=== PATIENT | female | born 2005 | race African-American/Black ===

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

== ENCOUNTER 2025-04-05 17:29 | Emergency (ER) | payer BC, SELFPAY ==
[2025-04-05 17:29] VITALS: BP 140/85; PULSE 90; RESP 18; TEMP 36.7; O2SAT 98; BMI 30.7
[2025-04-05 18:50] VITALS: BP 132/88; PULSE 91; RESP 16; TEMP 37.2; O2SAT 99
== END 2025-04-05 18:51 | disposition home or self-care (01) ==
PROVIDERS: Emergency Provider Emergency Medicine; Visit Provider Emergency Medicine
DX: R05.9 Cough, unspecified (principal); J40 Bronchitis, not specified as acute or chronic; F17.290 Nicotine dependence, other tobacco product, uncomplicated; J45.909 Unspecified asthma, uncomplicated; F17.210 Nicotine dependence, cigarettes, uncomplicated; F41.9 Anxiety disorder, unspecified; Z79.899 Other long term (current) drug therapy; Z79.51 Long term (current) use of inhaled steroids
CPT/HCPCS: 71046; 96372; 99282

== ENCOUNTER 2025-04-15 17:30 | Emergency (ER) | payer BC, SELFPAY ==
[2025-04-15 17:31] VITALS: BP 130/72; PULSE 83; RESP 17; TEMP 36.4; O2SAT 97; BMI 30.2
--- NOTE | 2025-04-15 17:52 | EDS_ITS ---
HPI History of Present Illness Chief Complaint: Nausea/Vomiting [facility] Medical History Anxiety Migraine headache Asthma Home Medications ?Medication ?Instructions ?Recorded ?Last Taken ?Type atomoxetine See Rx Instructions PO .COMP ANTOLIN 06/05/24 06/03/24 History ADHD beclomethasone dipropionate 80 2 inh inhalation QHS Unknown History mcg/actuation HFA breath activated aerosol (Qvar RediHaler) levocetirizine 5 mg tablet (24HR 5 mg PO QHS 06/05/24 Unknown History Allergy Relief) buspirone 5 mg tablet 5 mg PO TID PRN anxiety 1 mo nth 06/06/24 Unknown Rx #30 tabs topiramate 25 mg tablet 25 mg PO QHS 30 days #30 tab s 06/06/24 Unknown Rx albuterol sulfate 90 mcg/actuation 1 - 2 puff inhalati on Q4H PRN PRN 04/05/25 Unknown Rx aerosol inhaler (Ventolin HFA) Wheezing #1 device inhalational spacing device (Space #1 ea 04/05/25 Unkn own Rx Chamber) ondansetron 4 mg disintegrating 4 mg PO Q8H PRN PRN Na usea #10 tabs 04/15/25 Unknown Rx tablet Allergy/AdvReac Type Severity Reaction Status Date / Time Gadolinium-MRI Contrast Allergy Mild Nausea Verified 04/15/25 17:31 Medium pyrilamine AdvReac Intermediate Other Verified 04/15/25 17:31 Surgical History History of repair of congenital cleft palate Hx of adenoidectomy Hx of tympanostomy tubes Social History Smoking Status: Current every day smoker tobacco type: cigarettes and e- cigarettes substance use type: marijuana EXAM Physical Exam Const Vital Signs: 04/15/25 17:31 Temperature 97.5 F L Temperature Source Oral Pulse Rate 83 Respiratory Rate 17 Blood Pressure 130/72 H Blood Pressure Mean 91 Pulse Ox 97 Oxygen Delivery Method Room Air MDM MDM MDM Narrative Medical decision making narrative: HISTORY OF PRESENT ILLNESS: Chief complaint: Nausea and vomiting 19-year-old female history of asthma, anxiety presents with nausea and vomiting. She states she has had nausea and vomiting and near syncopal episodes for last several days. She further states she has been having 3-4 episodes of nonbloody nonbilious vomitus daily for the last 3 to 4 days. She notes as she is vomiting she feels like she may pass out. Denies losing consciousness. Denies prodromal
--- NOTE | 2025-04-15 17:52 | EX.ED.GENINJ ---
HPI History of Present Illness Chief Complaint: Nausea/Vomiting [facility] Medical History Anxiety Migraine headache Asthma Home Medications ?Medication ?Instructions ?Recorded ?Last Taken ?Type atomoxetine See Rx Instructions PO .COMPLEX 06/05/24 06/03/24 History ADHD beclomethasone dipropionate 80 2 inh inhalation QHS 06/05/24 Unknown History mcg/actuation HFA breath activated aerosol (Qvar RediHaler) levocetirizine 5 mg tablet (24HR 5 mg PO QHS 06/05/24 Unknown History Allergy Relief) buspirone 5 mg tablet 5 mg PO TID PRN anxiety 1 month 06/06/24 Unknown Rx #30 tabs topiramate 25 mg tablet 25 mg PO QHS 30 days #30 tabs 06/06/24 Unknown Rx albuterol sulfate 90 mcg/actuation 1 - 2 puff inhalation Q4H PRN PRN 04/05/25 Unknown Rx aerosol inhaler (Ventolin HFA) Wheezing #1 device inhalational spacing device (Space #1 ea 04/05/25 Unknown Rx Chamber) ondansetron 4 mg disintegrating 4 mg PO Q8H PRN PRN Nausea #10 tabs 04/15/25 Unknown Rx tablet Allergy/AdvReac Type Severity Reaction Status Date / Time Gadolinium-MRI Contrast Allergy Mild Nausea Verified 04/15/25 17:31 Medium pyrilamine AdvReac Intermediate Other Verified 04/15/25 17:31 Surgical History History of repair of congenital cleft palate Hx of adenoidectomy Hx of tympanostomy tubes Social History Smoking Status: Current every day smoker tobacco type: cigarettes and e-cigarettes substance use type: marijuana EXAM Physical Exam Const Vital Signs: 04/15/25 17:31 Temperature 97.5 F L Temperature Source Oral Pulse Rate 83 Respiratory Rate 17 Blood Pressure 130/72 H Blood Pressure Mean 91 Pulse Ox 97 Oxygen Delivery Method Room Air MDM MDM MDM Narrative Medical decision making narrative: HISTORY OF PRESENT ILLNESS: Chief complaint: Nausea and vomiting 19-year-old female history of asthma, anxiety presents with nausea and vomiting. She states she has had nausea and vomiting and near syncopal episodes for last several days. She further states she has been having 3-4 episodes of nonbloody nonbilious vomitus daily for the last 3 to 4 days. She notes as she is vomiting she feels like she may pass out. Denies losing consciousness. Denies prodromal symptoms such as headache, chest pain, severe abdominal pain. Denies any bleeding diathesis. Denies any difficulty urinating. No she is sexually active with men but her last period 1 week ago. She is think she is . Denies history abdominal surgeries. Denies any family procedures for blood clots. The patient denies recent surgery in the last 4 weeks or immobilization in the last 3 days, denies previous diagnosis of DVT or PE, hemoptysis, unilateral leg swelling or malignancy with treatment the last 6 months or palliative. No estrogen use noted. REVIEW OF SYSTEMS: Pertinent positives: Nausea and vomiting Pertinent negatives: Chest pain, shortness of breath, fevers PHYSICAL EXAM: Nursing triage notes reviewed, Vital signs reviewed Constitutional: please see [facility] HENT: MMM Eyes: Pupils equal round and reactive to light, Extraocular muscles intact Neck: No stridor, no JVD, full neck ROM Lungs: Clear to auscultation, No wheezing or rales. No increased work of breathing, no conversational dyspnea, no accessory muscle use, no nasal flaring. No respiratory distress noted Heart: Regular rate and rhythm, No rubs and No gallops, 2+ distal pulses (radial, femoral, posterior tibial) in all extremities Abdomen: Soft, there is no tenderness, rigidity, rebound or guarding, no obvious peritoneal signs, no palpable pulsatile abdominal masses, no auscultated abdominal bruit : No CVAT Extremities: No edema Neuro: No new focal neurological deficits, cranial nerves II through XII intact, 5/5 strength in all present extremities. Intact sensation to light touch in all present extremities, 2+ reflexes bilateral patella tendons. Skin: No rash or lesions noted MEDICAL DECISION MAKING: Chief Complaint: please see HPI External records reviewed: Reviewed recent ED visit from 10 days ago with the patient was evaluated for bronchitis Factors affecting care: As per HPI Social determinants of health: none History obtained from others: Friend Consults: none [facility] Narrative: Patient was initially hemodynamically stable, afebrile and nontoxic-appearing. Exam completely benign. Abdomen soft nontender patient was in no distress noted. Nauseous was not actively vomiting I considered the following differential diagnosis: Dehydration, arrhythmia, anemia, electrolyte disturbance, acute kidney injury, acute pancreatitis, hepatobiliary obstruction, arrhythmia, pneumonia, heart failure I obtained a broad lab and imaging work to further determine if the patient was suffering from a life-threatening etiology. Initially treat the patient IV fluids and Zofran Considered obtaining a troponin value given the patient's report of near syncope however she had no chest pain she had no risk factors for ACS her EKG was nonischemic therefore troponin assesment was not indicated at this time as I do not have a high suspicion for ACS ALL IMAGES (IF OBTAINED) HAVE BEEN PERSONALLY REVIEWED AND INTERPRETED BY MYSELF. EKG with normal sinus rhythm rate of 71, normal axis, normal intervals, no STEMI, no sign of WW, ARVD or Brugada syndrome I have personally reviewed the patient's chest x-ray. Chest x-ray is unremarkable for pulmonary edema, pneumothorax, pneumonia or focal cardiopulmonary abnormality. CBC with leukocytosis suggestive of systemic inflammation, no anemia or thrombocytopenia BMP without evidence of significant electrolyte abnormalities, no anion gap, no acute kidney injury. Lipase is wnl indicating no pancreatic inflammation. Urine test negative Upon reevaluation the patient made hemodynamically stable. She is able to tolerate p.o. She is appropriate for discharge home. The patient and/or family, caregivers express understanding. The patient and/or family, caregivers agrees with the plan. Shared decision making: I will have a discussion with the patient and or visitors regarding risk/benefits of further testing or admission. They will be made aware of of the risk/benefits inherent in this decision they will be given the opportunity to voice understanding. Total critical care time today provided was at least 0 minutes. This excludes separately billable procedures. Critical care time (if documented) is secondary to the patient having high probability of clinically significant/life threatening deterioration in the patient's condition which required my urgent intervention. Impression: 1. Nausea vomiting 2. Near syncope Dispo: Discharge home This note was generated with [employer] dictation software. It may contain incorrect words, spelling, and punctuation that were not noted in review of the chart prior to signing. Lab Data Labs: Laboratory Results - last 24 hr 04/15/25 04/15/25 18:10 18:37 WBC 13.1 H RBC 4.24 Hgb 13.2 Hct 38.0 MCV 89.6 MCH 31.1 MCHC 34.7 RDW Std Deviation 38.5 RDW Coeff of Phani 11.9 Plt Count 375 MPV 9.8 Immature Gran % (Auto) 0.500 Neut % (Auto) 74.5 H Lymph % (Auto) 19.0 [place] % (Auto) 5.5 Eos % (Auto) 0.2 Baso % (Auto) 0.3 Absolute Neuts (auto) 9.8 H Absolute Lymphs (auto) 2.48 Nucleated RBC % 0 Sodium 139 Potassium 3.6 Chloride 100 Carbon Dioxide 26.8 Anion Gap 12 BUN 13 Creatinine 0.81 Estim Creat Clear Calc 110.16 Est GFR (MDRD) Non-Af 107 BUN/Creatinine Ratio 15.6 Glucose 79 Calcium 9.6 Total Bilirubin 0.62 AST 20 ALT 20 Alkaline Phosphatase 111 H Total Protein 8.4 Albumin 4.6 Globulin 3.8 Albumin/Globulin Ratio 1.2 Lipase 27 Urine Test Negative Radiography Diagnostic Testing: Clinical Impression(s) from Imaging Studies Chest X-Ray 04/15/25 18:09 IMPRESSION: No focal consolidations. Reading Location: [facility] Discharge Plan Triage Chief Complaint: Nausea/Vomiting ED Provider: Don Hurd Dx/Rx/DC Orders Clinical Impression: Nausea, Near syncope Instructions: Dizziness Fainting Causes Prescriptions: New ondansetron 4 mg tablet,disintegrating 4 mg PO Q8H PRN PRN (Reason: Nausea) Qty: 10 0RF No Action atomoxetine [Strattera] See Rx Instructions PO .COMPLEX Rx Instructions: orally daily at night; Qvar RediHaler 80 mcg/actuation HFA aerosol breath activated 2 inh inhalation QHS levocetirizine [24HR Allergy Relief] 5 mg tablet 5 mg PO QHS topiramate 25 mg Tablet 25 mg PO QHS 30 Days Qty: 30 0RF Rx Instructions: 25 mg at daily night for 1 week and then increase to 50 mg daily just to continue buspirone 5 mg tablet 5 mg PO TID PRN (Reason: anxiety) 30 Days Qty: 30 0RF albuterol sulfate [Ventolin HFA] 90 mcg/actuation HFA aerosol inhaler 1 - 2 puff inhalation Q4H PRN PRN (Reason: Wheezing) Qty: 1 0RF (DME) Space Chamber Spacer See Rx Instructions .Route Qty: 1 0RF Rx Instructions: As directed Primary Care Provider: Care Physician,No Primary Referrals: Gt Saba MD [Med Staff - [employer]] - Activity Restrictions/Additional Instructions: Thank you for trusting us with your care today! Your labs and images are reassuring. No signs of significant dehydration, sign of organ dysfunction, heart dysfunction or . Please take Tylenol (2 pills, 650 mg), ibuprofen (2 pills, 400 mg) every 6 hours as needed for pain and fever control. Please take Zofran as needed for nausea and vomiting control Please return to the emergency department if your symptoms change or worsen. Please follow with your primary care physician for further outpatient evaluation and management. Print Language: Dutch Disposition Disposition: Home, Self Care
--- NOTE | 2025-04-15 18:09 | RAD_ITS ---
PROCEDURE: CHEST 1 VIEW (PORTABLE) 04/15/2025 REASON FOR EXAM: NEAR SYNCOPE TECHNIQUE: Frontal view of the chest. COMPARISON: 04/05/2025 FINDINGS: No focal consolidation. No pleural effusion or pneumothorax. Cardiac silhouette is within normal limits. RAD/Chest 1 View (Portable) IMPRESSION: No focal consolidations. Reading Location: [id number]
[2025-04-15] MEDS: 0.9% Normal Saline (1000mL) 1,000 ML 999 ML IV (18:19)
[2025-04-15 18:34] LABS: Hematocrit 38.0 % (37-47); Hemoglobin 13.2 g/dL (12.0-15.0); Immature Granulocytes Count 0.060 X10^3/uL (0.0-0.0); Mean Corp Hgb Conc 34.7 g/dL (32-36); Mean Corpuscular Volume 89.6 fL (81-99); Mean Platelet Vol. 9.8 fl (6.2-12.0); NRBC Flagged by Analyzer 0 % (0-5); Platelet Count 375 K/mm3 (150-450); RBC Distribution Width CV 11.9 % (11.6-14.6); RBC Distribution Width SD 38.5 fl (35.1-43.9); Red Blood Count 4.24 M/mm3 (4.2-5.4); White Blood Count 13.1 K/mm3 (4.4-11.0)
[2025-04-15 18:53] LABS: AST(SGOT) 20 U/L (<=31); Alanine Aminotransfer ALT/SGPT 20 U/L (<=34); Albumin, Serum 4.6 g/dL (3.5-5.0); Alkaline Phosphatase 111 U/L (35-104); Anion Gap 12 (5-15); BUN 13 mg/dL (4-19); BUN/Creat Ratio 15.6 RATIO (10-20); Calcium,Total 9.6 mg/dL (7.6-11.0); Carbon Dioxide 26.8 mmol/L (21.0-32.0); Chloride 100 mmol/L (98-108); Estimated Creatinine Clearance 110.16 ml/min (50-250); Globulin 3.8 g/dL (2.2-4.2); Glucose 79 mg/dL (70-99); Lipase 27 U/L (13-75); Potassium 3.6 mmol/L (3.3-5.1)
[2025-04-15 18:57] LABS: Internal QC Validated? YES +Cl - CLEAR BKGD; Pregnancy, Urine Negative Negative; Record Kit Lot#,Urine Preg 0000962302
[2025-04-15 19:59] VITALS: BP 123/69; PULSE 68; RESP 14; TEMP 36.6; O2SAT 99
== END 2025-04-15 20:14 | disposition home or self-care (01) ==
PROVIDERS: Emergency Provider Emergency Medicine; Visit Provider Emergency Medicine
DX: R11.2 Nausea with vomiting, unspecified (principal); F41.9 Anxiety disorder, unspecified; R55 Syncope and collapse; Z79.899 Other long term (current) drug therapy; J45.909 Unspecified asthma, uncomplicated; Z79.51 Long term (current) use of inhaled steroids; F17.290 Nicotine dependence, other tobacco product, uncomplicated; F17.210 Nicotine dependence, cigarettes, uncomplicated
CPT/HCPCS: 71045; 80053; 81025; 83690; 85025; 93005; 96361; 96374; 99283; A4216; J2405